=== PATIENT | female | born 1945 | race Caucasian/White ===

== ENCOUNTER 2017-02-12 11:43 | Inpatient (IN) | payer MEDICARE, MEDICAID ==
[~2017-02-12] VITALS: Ht 152.4 cm; Wt 83.5 kg
[2017-02-12] VITALS (11 sets, daily range): BP systolic 139–197; BP diastolic 73–131; PULSE 98–121; RESP 18–20; TEMP 98.7–99.7; O2SAT 88–99
[~2017-02-12 11:43] MED LIST: AMLO5TAB22 PO; ATOR40TA PO; CIPR500T4 PO; LISI-357 PO; SYNT25TA PO; ZOFR4TAB3 SL
[2017-02-12] MEDS ORDERED: SODIUM CHLOR 0.9% 1000 ML INJ 1,000 ML IV ONE ×2 (11:56)
[2017-02-12] MEDS ORDERED: SODIUM CHLOR 0.9% 1000 ML INJ 700 ML IV ONE (11:56)
[2017-02-12] MEDS ORDERED: ACETAMINOPHEN 325 MG TAB PO ONE (12:00)
[2017-02-12 12:09] LABS: BLOOD, URINE LARGE (NEG); GLUCOSE,URINE NEG (NEG); KETONE, URINE TRACE mg/dL (NEG); NITRITE,URINE NEG (NEG)
[2017-02-12] MEDS ORDERED: AMLO5TAB2 PO (12:19)
[2017-02-12] MEDS ORDERED: LEVO88TA2 PO (12:19)
[2017-02-12] MEDS ORDERED: ATOR40TA16 PO (12:19)
[2017-02-12] MEDS ORDERED: LISI2.5T3 PO (12:19)
[2017-02-12 12:31] LABS: METHOD OF COLLECTION CLEAN CATCH; URINE COLOR STRAW (YELLW/STRAW)
[2017-02-12 12:32] LABS: COMMENT (UR) CULTURE INDICATED; COMMENT2 (UR) MUCOUS PRESENT; CULTURE IF INDICATED CULTURE INDICATED; WBC, URINE 100-200 /hpf (0-5)
[2017-02-12 12:39] LABS: BASOPHIL % 0.2 % (0.0-2.0); HEMATOCRIT 36.5 % (35.0-46.0); LYMPHOCYTE # 0.5 TH/MM3 (1.0-4.8); MEAN CELL VOLUME 80.6 FL (80.0-100.0); MEAN CORPUSCULAR HEMOGLOBIN 26.5 PG (27.0-34.0); MEAN CORPUSCULAR HGB CONC 32.9 % (32.0-36.0); MONO % 3.8 % (0.0-8.0); PLATELET COUNT 199 TH/MM3 (150-450); RED BLOOD COUNT 4.53 MIL/MM3 (4.00-5.30); RED CELL DISTRIBUTION WIDTH 14.1 % (11.6-17.2); WHITE BLOOD COUNT 18.2 TH/MM3 (4.0-11.0)
[2017-02-12 12:41] LABS: HEMO FLAGS DIFF FINAL
[2017-02-12] MEDS ORDERED: PIPERACIL-TAZO 3.375 GM PREMIX 50 ML IV ONE (12:45)
[2017-02-12 12:58] LABS: CHLORIDE 104 MEQ/L (98-107); POTASSIUM 3.6 MEQ/L (3.5-5.1); SODIUM (NA) 142 MEQ/L (136-145)
[2017-02-12 13:02] LABS: ANION GAP 8 MEQ/L (5-15); BICARBONATE 30.4 MEQ/L (21.0-32.0); BLOOD UREA NITROGEN 21 MG/DL (7-18)
--- NOTE | 2017-02-12 13:02 | PD ---
HPI Chief Complaint: Complaint Time Seen by Provider: 11:55 Travel History International Travel<30 days: No Contact w/Intl Traveler<30days: No Traveled to known affect area: No History of Present Illness HPI Our patient is a 71 y.o. female presenting with R>L sided left flank pain, dysuria, fever, headache, nausea and vomiting that began last night. The pain is sharp, non-radiating, constant and non-worsening. Denies chest pain, dyspnea, blood in the urine or changes in bowel habits. She says her symptoms feel like a UTI she had over 10 years ago. She does not note any inciting, aggravating or relieving factors. No hx of trauma. She has a history of HTN and DM and is compliant with her medications. She has no allergies. She denies smoking, alcohol consumption and illicit drug use. Surgical history is remarkable for a variety of abdominal/ surgeries including appendectomy, cholecystitis, and hysterectomy. PFSH Past Medical History Narrative Medical HTN, DM Arthritis: Yes Asthma: No Autoimmune Disease: No Blood Disorders: No Anxiety: Yes Depression: Yes Heart Rhythm Problems: No Cancer: No Cardiovascular Problems: Yes High Cholesterol: Yes Chemotherapy: No Chest Pain: Yes Congestive Heart Failure: No COPD: No Cerebrovascular Accident: No Diabetes: Yes Patient Takes Glucophage: No Diminished Hearing: No Endocrine: No Gastrointestinal Disorders: Yes GERD: No Glaucoma: No Genitourinary: No Headaches: Yes Hepatitis: No Hiatal Hernia: No Hypertension: Yes Immune Disorder: No Kidney Stones: No Musculoskeletal: Yes Neurologic: Yes Psychiatric: Yes Respiratory: Yes Immunizations Current: No Myocardial Infarction: No Radiation Therapy: No Renal Failure: No Seizures: No Sleep Apnea: No Ulcer: No Tetanus Vaccination: < 5 Years Influenza Vaccination: Yes ?: Not Tubal Ligation: Yes Past Surgical History Abdominal Surgery: Yes (UMBILICAL HERNIA REPAIR) AICD: No Appendectomy: Yes Cardiac Surgery: No Section: Yes (1967) Cholecystectomy: Yes Ear Surgery: No Endocrine Surgery: No Eye Surgery: No Genitourinary Surgery: No Gynecologic Surgery: Yes (HYSTERECTOMY) Hysterectomy: Yes Joint Replacement: No Oral Surgery: No Pacemaker: No Thoracic Surgery: Yes Other Surgery: Yes Social History Alcohol Use: No Tobacco Use: No Substance Use: No Allergies-Medications (Allergen,Severity, Reaction): Coded Allergies: No Known Allergies (Verified , 06/10/15) Reported Meds & Prescriptions Reported Meds & Active Scripts Active Reported Lisinopril 2.5 Mg Tab 2.5 Mg PO DAILY Atorvastatin (Atorvastatin Calcium) 40 Mg Tab 40 Mg PO HS Amlodipine (Amlodipine Besylate) 5 Mg Tab 5 Mg PO DAILY Levothyroxine (Levothyroxine Sodium) 88 Mcg Tab 88 Mcg PO DAILY Review of Systems Except as stated in HPI: all other systems reviewed are Neg General / Constitutional: Positive: Fever Gastrointestinal: Positive: Nausea, Vomiting Genitourinary: Positive: Dysuria, Flank Pain Physical Exam Narrative GENERAL: Alert and oriented, appears to be in mild distress. Speaks in full sentences. SKIN: Warm and dry. HEAD: Normocephalic. EYES: No scleral icterus. No injection or drainage. NECK: Supple, trachea midline. No JVD or lymphadenopathy. CARDIOVASCULAR: Regular rate and rhythm without murmurs, gallops, or rubs. RESPIRATORY: Breath sounds equal bilaterally. No accessory muscle use. GASTROINTESTINAL: Abdomen soft, mildly tender, nondistended. No suprapubic tenderness. MUSCULOSKELETAL: No cyanosis, or edema. BACK: Nontender without obvious deformity. + Right sided CVA tenderness Data Data Last Documented VS Vital Signs Date Time Temp Pulse Resp B/P Pulse Ox O2 Delivery O2 Flow Rate FiO2 02/12/17 12:42 99 Room Air 02/12/17 11:48 99.7 121 20 152/86 Orders Urinalysis - C+S If Indicated (02/12/17 11:52) Complete Blood Count With Diff (02/12/17 11:56) Comprehensive Metabolic Panel (02/12/17 11:56) Lactic Acid Sepsis Protocol (02/12/17 11:56) Blood Culture (02/12/17 11:56) Chest, Single Ap (02/12/17 11:56) Blood Glucose (02/12/17 11:56) Ecg Monitoring (02/12/17 11:56) Iv Access Insert/Monitor (02/12/17 11:56) Oximetry (02/12/17 11:56) Oxygen Administration (02/12/17 11:56) Acetaminophen (Tylenol) (02/12/17 12:00) Sodium Chlor 0.9% 1000 Ml Inj (Ns 1000 M (02/12/17 11:56) Sodium Chlor 0.9% 1000 Ml Inj (Ns 1000 M (02/12/17 11:56) Sodium Chlor 0.9% 1000 Ml Inj (Ns 1000 M (02/12/17 11:56) Ct Abd/Pel W/O Iv Contrast (02/12/17 12:21) Urine Culture (02/12/17 12:05) Piperacil-Tazo 3.375 Gm Premix (Zosyn 3. (02/12/17 12:45) Admit Order (Ed Use Only) (02/12/17 14:03) Labs Laboratory Tests Test 02/12/17 02/12/17 02/12/17 12:05 12:30 12:45 Urine Collection Type CLEAN CATCH Urine Color STRAW Urine Turbidity MOD Urine pH 6.0 Urine Specific [place] 1.012 Urine Protein 300 OR GREATER mg/dL Urine Glucose (UA) NEG mg/dL Urine Ketones TRACE mg/dL Urine Occult Blood LARGE Urine Nitrite NEG Urine Bilirubin NEG Urine Leukocyte Esterase SMALL Urine RBC 25-49 /hpf Urine WBC 100-200 /hpf Urine WBC Clumps MOD Urine Squamous Epithelial 6-8 /hpf Cells Urine Amorphous Sediment MOD Microscopic Urinalysis Comment CULTURE INDICATED Urine Collection Time 1205 White Blood Count 18.2 TH/MM3 Red Blood Count 4.53 MIL/MM3 Hemoglobin 12.0 GM/DL Hematocrit 36.5 % Mean Corpuscular Volume 80.6 FL Mean Corpuscular Hemoglobin 26.5 PG Mean Corpuscular Hemoglobin 32.9 % Concent Red Cell Distribution Width 14.1 % Platelet Count 199 TH/MM3 Mean Platelet Volume 9.0 FL Neutrophils (%) (Auto) 93.0 % Lymphocytes (%) (Auto) 3.0 % Monocytes (%) (Auto) 3.8 % Eosinophils (%) (Auto) 0.0 % Basophils (%) (Auto) 0.2 % Neutrophils # (Auto) 17.0 TH/MM3 Lymphocytes # (Auto) 0.5 TH/MM3 Monocytes # (Auto) 0.7 TH/MM3 Eosinophils # (Auto) 0.0 TH/MM3 Basophils # (Auto) 0.0 TH/MM3 CBC Comment DIFF FINAL Differential Comment Sodium Level 142 MEQ/L Potassium Level 3.6 MEQ/L Chloride Level 104 MEQ/L Carbon Dioxide Level 30.4 MEQ/L Anion Gap 8 MEQ/L Blood Urea Nitrogen 21 MG/DL Creatinine 1.40 MG/DL Estimat Glomerular Filtration 37 ML/MIN Rate Random Glucose 166 MG/DL Calcium Level 9.3 MG/DL Total Bilirubin 0.8 MG/DL Aspartate Amino Transf 20 U/L (AST/SGOT) Alanine Aminotransferase 18 U/L (ALT/SGPT) Alkaline Phosphatase 103 U/L Total Protein 7.2 GM/DL Albumin 3.2 GM/DL Lactic Acid Level 1.1 mmol/L MDM Medical Decision Making Medical Screen Exam Complete: Yes Emergency Medical Condition: Yes Medical Record Reviewed: Yes Differential Diagnosis UTI, nephrolithiasis, pyelonephritis Narrative Course Our patient is a 71 y.o. F presenting with R>L sided flank pain, subjective fever, headache, nausea, vomiting and abdominal pain of 1 day duration. She says these symptoms are similar to a UTI she had over 10 years ago. She agrees to undergo septic workup to further investigate the etiology of her symptoms. CBC & BMP Diagram 02/12/17 12:30 LFTs normal LA 1.1 UA UTI present Last 24 hours Impressions Abdomen/Pelvis CT 02/12/17 1221 Signed Impressions: Service Date/Time: Sunday, February 12, 2017 12:41 - CONCLUSION: 1. Right-sided pelviectasis and subtle right ureteral prominence with associated perinephric stranding. Although nonspecific, these findings may reflect recent passage of renal calculus. Otherwise, no radiopaque renal calculi or evidence for significant obstructive uropathy. Moustapha Meneses MD Chest X-Ray 02/12/17 1156 Signed Impressions: Service Date/Time: Sunday, February 12, 2017 12:53 - CONCLUSION: No acute cardiopulmonary abnormality is identified. Luther Elias MD Pt has UTI and meets sepsis criteria. Renal dose Zosyn started. Pain controlled with Tylenol. d/w Dr Mathur. Sepsis Criteria SIRS Criteria (2 or more): Heart rate over 90, WBC > 54916, < 4000 or > 10% bands Sepsis Criteria (SIRS+source): Infect source susp/known Diagnosis Primary Impression: Sepsis Qualified Code: A41.9 - Sepsis, due to unspecified organism Additional Impression: UTI (urinary tract infection) Qualified Code: N30.01 - Acute cystitis with hematuria Admitting Information Admitting Physician Requests: Admit Ronan Little MD Feb 12, 2017 13:02
[2017-02-12 13:05] LABS: ALT (GPT) 18 U/L (10-53); AST (GOT) 20 U/L (15-37); GLOMERULAR FILTRATION RATE 37 ML/MIN (>89)
[2017-02-12 13:06] LABS: TOTAL BILIRUBIN ADULT 0.8 MG/DL (0.2-1.0)
[2017-02-12 13:08] LABS: ALKALINE PHOSPHATASE 103 U/L (45-117)
--- NOTE | 2017-02-12 13:22 | RADRPT ---
EXAM DATE/TIME: 02/12/2017 12:53 [facility] COMPARISON: CT ABDOMEN & PELVIS W/O CONTRAST, February 12, 2017, 12:41. INDICATIONS : Fever and short of breath MEDICAL HISTORY : Hypertension. Hypercholesterolemia. SURGICAL HISTORY : None. ENCOUNTER: Initial ACUITY: 1 day PAIN SCORE: 0/10 LOCATION: Bilateral chest FINDINGS: Portable AP view of the chest demonstrates a normal-sized cardiac silhouette with mildly tortuous immanuel cending thoracic aorta. No effusion, consolidation, or pneumothorax is identified. Bones and soft tis sues demonstrate no acute finding. Multiple EKG leads overlie the patient. CONCLUSION: No acute cardiopulmonary abnormality is identified. Luther Elias MD on February 12, 2017 at 13:19 Board Certified Radiologist. This report was verified electronically.
--- NOTE | 2017-02-12 13:37 | RADRPT ---
EXAM DATE/TIME: 02/12/2017 12:41 [facility] COMPARISON: No previous studies available for comparison. INDICATIONS : Urinary urgency, frequency and burning since yesterday. Right flank pain. ORAL CONTRAST: No oral contrast ingested. RADIATION DOSE: 22.64 CTDIvol (mGy) MEDICAL HISTORY : Hypertension. Diabetes. SURGICAL HISTORY : Umbilical hernia repair. Appendectomy.Cholecystectomy.Hysterectomy. Tubal ligation. ENCOUNTER: Initial ACUITY: 2 days PAIN SCALE: 4/10 LOCATION: Right flank TECHNIQUE: Volumetric scanning of the abdomen and pelvis was performed. Using automated exposure control and ad justment of the mA and/or kV according to patient size, radiation dose was kept as low as reasonably achievable to obtain optimal diagnostic quality images. DICOM format image data is available electro nically for review and comparison. FINDINGS: LOWER LUNGS: Minimal bibasilar atelectasis. LIVER: Homogeneous density without lesion. There is no dilation of the biliary tree. Gallbladder is surgic ally absent. SPLEEN: Normal size without lesion. PANCREAS: Within normal limits. KIDNEYS: Mild perinephric stranding is noted on the right. The right renal collecting system is minimally prom inent and there is very mild right-sided ureteral prominence. No radiopaque renal calculi or ureteral calculi are demonstrated. 1.4 x 1.9 cm cyst in the posterior mid left kidney. ADRENAL GLANDS: Within normal limits. VASCULAR: There is no aortic aneurysm. BOWEL/MESENTERY: Small hiatal hernia. Otherwise, the stomach, small bowel, and colon demonstrate no acute abnormality. There is no free intraperitoneal air or fluid. ABDOMINAL WALL: Postsurgical features of anterior bowel wall hernia repair. RETROPERITONEUM: There is no lymphadenopathy. BLADDER: No wall thickening or mass. REPRODUCTIVE: Within normal limits. INGUINAL: There is no lymphadenopathy or hernia. MUSCULOSKELETAL: Within normal limits for patient age. CONCLUSION: 1. Right-sided pelviectasis and subtle right ureteral prominence with associated perinephric strandin g. Although nonspecific, these findings may reflect recent passage of renal calculus. Otherwise, no r adiopaque renal calculi or evidence for significant obstructive uropathy. Moustapha Meneses MD on February 12, 2017 at 13:22 Board Certified Radiologist. This report was verified electronically.
[2017-02-12] MEDS ORDERED: DEXTROSE 50% IN WATER 50 ML VIAL(D50) IV PRN (14:15)
[2017-02-12] MEDS ORDERED: SODIUM CHLORIDE 0.9% FLUSH 10 ML FLUSH IV FLUSH PRN (14:15)
[2017-02-12] MEDS ORDERED: NALOXONE HCL 0.4 MG/ML AMP IV PRN (14:15)
[2017-02-12] MEDS ORDERED: GLUCAGON 1 MG/ML VIAL OTHER PRN (14:15)
[2017-02-12] MEDS ORDERED: BISACODYL 10 MG SUPP RECTAL PRN (15:00)
[2017-02-12] MEDS ORDERED: MAGNESIUM HYDROXIDE SUSP 30 ML CUP PO PRN (15:00)
[2017-02-12] MEDS ORDERED: SENNOSIDES 8.6 MG TAB PO PRN (15:00)
[2017-02-12] MEDS: ONDANSETRON HCL 4 MG/2 ML VIAL IVP PRN ×2 (15:00→21:25)
[2017-02-12] MEDS ORDERED: ACETAMINOPHEN 325 MG TAB PO PRN (15:00)
[2017-02-12] MEDS ORDERED: LACTULOSE SYRUP 20 GM/30 ML CUP PO PRN (15:00)
[2017-02-12] MEDS: INSULIN ASPART SUPPLEMENTAL SCALE SQ SCH ×2 (16:00→21:00)
[2017-02-12] MEDS: ACETAMINOPHEN/HYDROcodone 325 MG/5 MG TAB PO PRN (16:01)
[2017-02-12] MEDS ORDERED: cloNIDine HCL 0.1 MG TAB PO ONE (17:30)
[2017-02-12] MEDS: SODIUM CHLOR 0.9% 1000 ML INJ 1,000 ML IV SCH (17:31)
[2017-02-12] MEDS: DOCUSATE SODIUM 50 MG/SENNA 8.6 MG TAB PO SCH (21:25)
[2017-02-12] MEDS: SODIUM CHLORIDE 0.9% FLUSH 10 ML FLUSH IV FLUSH SCH (21:26)
[2017-02-12] MEDS: PIPERACIL-TAZO 3.375 GM PREMIX 50 ML IV SCH (22:00)
[2017-02-13] VITALS (8 sets, daily range): BP systolic 136–177; BP diastolic 80–95; PULSE 84–94; RESP 18–20; TEMP 95.9–99.7; O2SAT 96–99
[2017-02-13] MEDS: SODIUM CHLOR 0.9% 1000 ML INJ 1,000 ML IV SCH ×3 (04:51→21:17)
[2017-02-13] MEDS: PIPERACIL-TAZO 3.375 GM PREMIX 50 ML IV SCH ×3 (04:51→21:19)
[2017-02-13] MEDS: INSULIN ASPART SUPPLEMENTAL SCALE SQ SCH ×4 (06:31→21:10)
[2017-02-13] MEDS: DOCUSATE SODIUM 50 MG/SENNA 8.6 MG TAB PO SCH ×2 (08:07→21:00)
[2017-02-13] MEDS: SODIUM CHLORIDE 0.9% FLUSH 10 ML FLUSH IV FLUSH SCH ×2 (08:08→21:16)
[2017-02-13 08:33] LABS: AUTOMATED NEUTROPHIL # 12.8 TH/MM3 (1.8-7.7); BASOPHIL % 0.1 % (0.0-2.0); EOSINOPHIL % 0.3 % (0.0-4.0); HEMATOCRIT 31.3 % (35.0-46.0); LYMPH % 8.8 % (9.0-44.0); LYMPHOCYTE # 1.4 TH/MM3 (1.0-4.8); MEAN CELL VOLUME 81.2 FL (80.0-100.0); MEAN CORPUSCULAR HEMOGLOBIN 25.9 PG (27.0-34.0); MEAN CORPUSCULAR HGB CONC 31.9 % (32.0-36.0); MONO % 8.7 % (0.0-8.0); NEUT % 82.1 % (16.0-70.0); PLATELET COUNT 156 TH/MM3 (150-450); RED BLOOD COUNT 3.85 MIL/MM3 (4.00-5.30); RED CELL DISTRIBUTION WIDTH 14.1 % (11.6-17.2); WHITE BLOOD COUNT 15.5 TH/MM3 (4.0-11.0)
[2017-02-13 08:40] LABS: POTASSIUM 3.6 MEQ/L (3.5-5.1)
[2017-02-13 08:45] LABS: HEMO FLAGS AUTO DIFF
[2017-02-13 08:50] LABS: BICARBONATE 28.1 MEQ/L (21.0-32.0)
[2017-02-13 09:23] LABS: PLATELET ESTIMATE SMEAR NORMAL (NORMAL); PLATELET MORPHOLOGY NORMAL (NORMAL); SCAN/DIFF AUTO DIFF CONFIRMED
[2017-02-13] MEDS: PANTOPRAZOLE SOD 40 MG DELAYED RELEASE TAB PO SCH (10:40)
--- NOTE | 2017-02-13 12:37 | MH ---
cc: MARTIN MEADE MD DATE OF ADMISSION 02/12/2017 CHIEF COMPLAINT Right-sided flank area pain HISTORY OF PRESENT ILLNESS This is a 71-year-old very pleasant female with past medical and surgical history significant for diabetes mellitus, hypertension, arthritis, anxiety, depression, hyperlipidemia, history of headache, history of umbilical hernia repair, appendectomy, 1968, cholecystectomy, hysterectomy and came to the ER at [facility] complaining of right-sided flank pain, dysuria, fever, headache, nausea and vomiting which began yesterday night and the patient is having sharp and nonradiating, constant pain in the right flank area. She had some vomiting yesterday, but denies any vomiting today. She has some mild nausea. She denies any fever or chills. Denies any cough. She denies any blood in the urine. She denies smoking or alcohol consumption. No illicit drug abuse. After the treatment, she feels better and other than that nothing significant. PAST MEDICAL AND SURGICAL HISTORY As dictated above. SOCIAL HISTORY She denies smoking, drinking or taking any drugs. Lives at home with . She is not working. FAMILY HISTORY Nothing significant. ALLERGIES NO KNOWN DRUG ALLERGIES. MEDICATIONS 1. Lisinopril 2.5 mg p.o. daily 2. Atorvastatin 40 mg p.o. daily 3. Amlodipine 5 mg p.o. daily 4. Levothyroxine 88 mcg p.o. daily REVIEW OF SYSTEMS Positive for right-sided flank pain, all other review of systems are negative except nausea and difficulty with urination. PHYSICAL EXAMINATION This is a 71-year female sitting on the bed not in acute distress. VITAL SIGNS: Temperature 98.3, heart rate 89, respiration 19, blood pressure 147/85, O2 saturation 99% at two liters nasal cannula. HEENT: Normocephalic, atraumatic. EOMI. PERRL. Oral mucosa moist. NECK: Supple. No visible thyromegaly or neck mass. Trachea central. CARDIOVASCULAR: Regular rate and rhythm. Respirations clear to auscultation bilaterally. ABDOMEN: Soft. Bowel sounds audible. Mild tenderness in the right side of the abdomen in the middle. No rebound tenderness. EXTREMITIES: No cyanosis or clubbing. Full range of motion of all extremities. BACK: Examination shows a right CVA tenderness. NEUROLOGIC: Awake, alert, and oriented x4. No focal deficits. SKIN: Warm and dry. PSYCH: The patient is cooperative. Mood and affect is normal. LABORATORY DATA Include CBC showed WBC count of 18.2, now it is 15.5, hemoglobin was 12.0 now it is 10.0, MCH is 26.5 now it is 25.9, neutrophils 93%, now it is 82.1 high. BMP totally unremarkable except for sodium 148 high, chloride 111 high, creatinine was 1.40 which is high, GFR 37 low, calcium is 8.0 low, albumin 3.2. Urine examination done shows 100-200 WBCs with moderate clumps of WBCs, 25-49 RBC, protein 300 or more greater. Urine is moderately turbid. Trace of ketones, occult blood large. Nitrite negative. Leukocyte esterase small. Culture indicated. Blood cultures x2 done negative so far. Urine cultures are negative so far. Chest x-ray done shows no acute cardiopulmonary process. CT of the abdomen and pelvis was done shows right-sided pelviectasis and a septal right ureteral prominence with associated perinephric stenting, although nonspecific, these findings may reflect recent passage of renal calculus, otherwise no radiopaque renal calculi or evidence of significant obstructive uropathy. ASSESSMENT/PLAN This is a 71-year female who came to the ER diagnosed with right-sided flank pain with a urinary tract infection most likely acute pyelonephritis. The patient is on Zosyn IV and also [place] 5/325 p.o. q4h p.r.n. pain. His history of hypertension. Continue the home medication. We will monitor blood pressure. History of diabetes mellitus most likely diet controlled. We will monitor sugar. History of hypothyroidism. Continue with levothyroxine 88 mcg p.o. daily. History of hyperlipidemia. Continue Lipitor 40 mg p.o. daily. DVT prophylaxis. SCD. GI prophylaxis. Protonix 40 mg p.o. daily. We are going to manage the patient on a daily basis, make recommendations on a daily basis. Martin Meade MD EA/MELONIE /10:05 AM /12:30 PM
[2017-02-14] VITALS (7 sets, daily range): BP systolic 152–199; BP diastolic 79–102; PULSE 68–92; RESP 16–20; TEMP 97–99; O2SAT 97–100
[2017-02-14] MEDS: cloNIDine HCL 0.1 MG TAB PO PRN (01:13)
[2017-02-14 05:25] LABS: CHLORIDE 113 MEQ/L (98-107); POTASSIUM 3.5 MEQ/L (3.5-5.1); SODIUM (NA) 148 MEQ/L (136-145)
[2017-02-14] MEDS: PIPERACIL-TAZO 3.375 GM PREMIX 50 ML IV SCH ×3 (05:29→21:51)
[2017-02-14] MEDS: INSULIN ASPART SUPPLEMENTAL SCALE SQ SCH ×4 (05:30→21:00)
[2017-02-14 05:49] LABS: BASOPHIL % 0.1 % (0.0-2.0); EOSINOPHIL # 0.1 TH/MM3 (0-0.4); EOSINOPHIL % 1.1 % (0.0-4.0); HEMATOCRIT 30.7 % (35.0-46.0); HEMO FLAGS DIFF FINAL; LYMPH % 11.9 % (9.0-44.0); LYMPHOCYTE # 1.4 TH/MM3 (1.0-4.8); MEAN CELL VOLUME 81.6 FL (80.0-100.0); MEAN CORPUSCULAR HEMOGLOBIN 25.7 PG (27.0-34.0); MEAN CORPUSCULAR HGB CONC 31.5 % (32.0-36.0); MONO % 8.9 % (0.0-8.0); PLATELET COUNT 163 TH/MM3 (150-450); RED BLOOD COUNT 3.76 MIL/MM3 (4.00-5.30); RED CELL DISTRIBUTION WIDTH 14.3 % (11.6-17.2); WHITE BLOOD COUNT 11.5 TH/MM3 (4.0-11.0)
[2017-02-14 06:26] LABS: ALKALINE PHOSPHATASE 70 U/L (45-117); ALT (GPT) 15 U/L (10-53); ANION GAP 8 MEQ/L (5-15); AST (GOT) 17 U/L (15-37); BICARBONATE 27.2 MEQ/L (21.0-32.0); BLOOD UREA NITROGEN 18 MG/DL (7-18); GLOMERULAR FILTRATION RATE 34 ML/MIN (>89); TOTAL BILIRUBIN ADULT 0.4 MG/DL (0.2-1.0)
[2017-02-14] MEDS: ACETAMINOPHEN/HYDROcodone 325 MG/5 MG TAB PO PRN ×2 (07:33→21:53)
--- NOTE | 2017-02-14 08:07 | HHI.PR ---
Subjective History of Present Illness Patient right flank pain better. no acute issue D/W KAREN Rayo. Review of Systems Constitutional Constitutional: Fatigue, Weakness Genitourinary Remarks right flank pain. Vitals/Results Intake & Output 02/13/17 02/13/17 02/14/17 15:00 23:00 07:00 Intake Total 750 ml 600 ml Balance 750 ml 600 ml Intake Oral 750 ml 0 ml IV Total 600 ml # Voids 4 2 # Bowel Movements 1 Vital Signs Vital Signs Date Time Temp Pulse Resp B/P Pulse Ox O2 Delivery O2 Flow Rate FiO2 02/14/17 04:00 97.9 92 20 163/91 97 02/14/17 00:00 99.0 90 20 199/102 99 02/13/17 21:00 91 02/13/17 20:30 Nasal Cannula 2.00 02/13/17 20:00 98.2 94 20 177/93 97 02/13/17 16:36 99.7 87 19 162/80 99 02/13/17 12:28 98.3 87 19 171/95 99 02/13/17 09:30 Nasal Cannula 2.00 02/13/17 08:49 98.3 89 19 147/85 99 CBC/BMP: 02/14/17 0500 02/14/17 0500 Lab Results Laboratory Tests Test 02/14/17 05:00 White Blood Count 11.5 TH/MM3 Red Blood Count 3.76 MIL/MM3 Hemoglobin 9.7 GM/DL Hematocrit 30.7 % Mean Corpuscular Volume 81.6 FL Mean Corpuscular Hemoglobin 25.7 PG Mean Corpuscular Hemoglobin 31.5 % Concent Red Cell Distribution Width 14.3 % Platelet Count 163 TH/MM3 Mean Platelet Volume 10.6 FL Neutrophils (%) (Auto) 78.0 % Lymphocytes (%) (Auto) 11.9 % Monocytes (%) (Auto) 8.9 % Eosinophils (%) (Auto) 1.1 % Basophils (%) (Auto) 0.1 % Neutrophils # (Auto) 9.0 TH/MM3 Lymphocytes # (Auto) 1.4 TH/MM3 Monocytes # (Auto) 1.0 TH/MM3 Eosinophils # (Auto) 0.1 TH/MM3 Basophils # (Auto) 0.0 TH/MM3 CBC Comment DIFF FINAL Differential Comment Sodium Level 148 MEQ/L Potassium Level 3.5 MEQ/L Chloride Level 113 MEQ/L Carbon Dioxide Level 27.2 MEQ/L Anion Gap 8 MEQ/L Blood Urea Nitrogen 18 MG/DL Creatinine 1.50 MG/DL Estimat Glomerular Filtration 34 ML/MIN Rate Random Glucose 117 MG/DL Calcium Level 8.0 MG/DL Total Bilirubin 0.4 MG/DL Aspartate Amino Transf 17 U/L (AST/SGOT) Alanine Aminotransferase 15 U/L (ALT/SGPT) Alkaline Phosphatase 70 U/L Total Protein 5.8 GM/DL Albumin 2.2 GM/DL Physical Exam General General Appearance: Well Developed, Well Nourished, No Acute Distress, Comfortable Eyes Eye Exam: Pupils Equal, Pupils Reactive, Sclera White, Extraocular Movement Intact Throat Throat Exam: Oral Mucosa [place] & Moist, Oral Pharynx Normal Neck Neck Exam: Neck Supple, Trachea Midline Pulmonary Resp Exam: Clear Bilaterally, Breath Sounds Equal Cardiology CV Exam: Regular, Normal Sinus Rhythm Gastrointestinal/Abdomen GI Exam: Soft, Non-Tender, Bowel Sounds Present Genitourinary Remarks right flank tenderness. Musculoskeletal MS Exam: Normal Tone Integumentary Skin Exam: Clear, Warm, Dry Extremeties Extremities Exam: No Edema Neurologic Neuro Exam: Alert, Awake, Oriented, Speech Clear, Moving All Extremities, No Focal Deficits Psychiatric Psych Exam: Appropriate Responses VTE Prophylaxis VTE Prophylaxis Meds: Heparin PUD Prophylasis PUD Prophylaxis: Protonix Assessment/Plan Assessment/Plan ASSESSMENT/PLAN This is a 71-year female who came to the ER diagnosed with right-sided flank pain with a urinary tract infection most likely acute pyelonephritis. The patient is on Zosyn IV and also [place] 5/325 p.o. q4h p.r.n. pain. His history of hypertension. Continue the home medication. We will monitor blood pressure. History of diabetes mellitus most likely diet controlled. We will monitor sugar. History of hypothyroidism. Continue with levothyroxine 88 mcg p.o. daily. History of hyperlipidemia. Continue Lipitor 40 mg p.o. daily. DVT prophylaxis. SCD. GI prophylaxis. Protonix 40 mg p.o. daily. We are going to manage the patient on a daily basis, make recommendations on a daily basis. Discussed Condition with: Patient Martin José MD Feb 14, 2017 08:07
[2017-02-14] MEDS: SODIUM CHLORIDE 0.9% FLUSH 10 ML FLUSH IV FLUSH SCH ×2 (09:00→21:00)
[2017-02-14] MEDS: DOCUSATE SODIUM 50 MG/SENNA 8.6 MG TAB PO SCH ×2 (09:00→21:00)
[2017-02-14] MEDS: SODIUM CHLOR 0.9% 1000 ML INJ 1,000 ML IV SCH (09:41)
[2017-02-14] MEDS: PANTOPRAZOLE SOD 40 MG DELAYED RELEASE TAB PO SCH (10:34)
[2017-02-15] VITALS: BP 160/100; PULSE 82; RESP 18; TEMP 97.8; O2SAT 97
[2017-02-15 04:00] VITALS: BP 160/110; PULSE 72; RESP 20; TEMP 97.9; O2SAT 99
[2017-02-15] MEDS: SODIUM CHLOR 0.9% 1000 ML INJ 1,000 ML IV SCH ×2 (05:54→14:15)
[2017-02-15] MEDS: INSULIN ASPART SUPPLEMENTAL SCALE SQ SCH ×5 (05:54→21:00)
[2017-02-15] MEDS: PIPERACIL-TAZO 3.375 GM PREMIX 50 ML IV SCH ×2 (05:54→14:14)
[2017-02-15 06:18] LABS: AUTOMATED NEUTROPHIL # 6.2 TH/MM3 (1.8-7.7); BASOPHIL % 0.2 % (0.0-2.0); EOSINOPHIL # 0.2 TH/MM3 (0-0.4); EOSINOPHIL % 2.4 % (0.0-4.0); HEMATOCRIT 32.2 % (35.0-46.0); HEMO FLAGS DIFF FINAL; LYMPH % 18.6 % (9.0-44.0); LYMPHOCYTE # 1.7 TH/MM3 (1.0-4.8); MEAN CELL VOLUME 81.8 FL (80.0-100.0); MEAN CORPUSCULAR HEMOGLOBIN 26.4 PG (27.0-34.0); MEAN CORPUSCULAR HGB CONC 32.3 % (32.0-36.0); MONO % 10.7 % (0.0-8.0); NEUT % 68.1 % (16.0-70.0); PLATELET COUNT 163 TH/MM3 (150-450); RED BLOOD COUNT 3.93 MIL/MM3 (4.00-5.30); RED CELL DISTRIBUTION WIDTH 14.3 % (11.6-17.2); WHITE BLOOD COUNT 9.1 TH/MM3 (4.0-11.0)
[2017-02-15 06:27] LABS: CHLORIDE 111 MEQ/L (98-107); POTASSIUM 3.7 MEQ/L (3.5-5.1); SODIUM (NA) 148 MEQ/L (136-145)
[2017-02-15 06:37] LABS: ANION GAP 8 MEQ/L (5-15); BICARBONATE 28.9 MEQ/L (21.0-32.0); BLOOD UREA NITROGEN 19 MG/DL (7-18)
[2017-02-15 06:40] LABS: ALT (GPT) 15 U/L (10-53); AST (GOT) 17 U/L (15-37); GLOMERULAR FILTRATION RATE 40 ML/MIN (>89)
[2017-02-15 06:41] LABS: TOTAL BILIRUBIN ADULT 0.4 MG/DL (0.2-1.0)
[2017-02-15 06:43] LABS: ALKALINE PHOSPHATASE 83 U/L (45-117)
[2017-02-15] MEDS: cloNIDine HCL 0.1 MG TAB PO PRN (07:52)
[2017-02-15] MEDS: SODIUM CHLORIDE 0.9% FLUSH 10 ML FLUSH IV FLUSH SCH ×2 (07:53→21:50)
[2017-02-15] MEDS: PANTOPRAZOLE SOD 40 MG DELAYED RELEASE TAB PO SCH (07:53)
[2017-02-15] MEDS: DOCUSATE SODIUM 50 MG/SENNA 8.6 MG TAB PO SCH ×2 (07:53→21:00)
[2017-02-15 08:00] VITALS: BP 190/102; PULSE 80; RESP 20; TEMP 97.5; O2SAT 98
[2017-02-15 12:00] VITALS: BP 160/100; PULSE 75; RESP 20; TEMP 98.5; O2SAT 94
--- NOTE | 2017-02-15 13:04 | HHI.PR ---
Subjective History of Present Illness Patient right flank pain better. no acute issue D/W KAREN Rayo. Review of Systems Constitutional Constitutional: Fatigue, Weakness Genitourinary Remarks right flank pain. Vitals/Results Intake & Output 02/14/17 02/14/17 02/15/17 15:00 23:00 07:00 Intake Total 900 ml 1363 ml 942 ml Balance 900 ml 1363 ml 942 ml Intake Oral 900 ml 360 ml 360 ml IV Total 1003 ml 582 ml # Voids 3 1 2 # Bowel Movements 1 Vital Signs Vital Signs Date Time Temp Pulse Resp B/P Pulse Ox O2 Delivery O2 Flow Rate FiO2 02/15/17 12:00 98.5 75 20 160/100 94 02/15/17 10:16 96 Nasal Cannula 2.00 02/15/17 08:00 97.5 80 20 190/102 98 02/15/17 04:00 97.9 72 20 160/110 99 02/15/17 00:00 97.8 82 18 160/100 97 02/14/17 20:05 86 02/14/17 20:00 98.7 88 16 152/79 99 02/14/17 20:00 99 Nasal Cannula 2.00 02/14/17 16:00 97.5 80 20 179/92 98 CBC/BMP: 02/15/17 0558 02/15/17 0558 Lab Results Laboratory Tests Test 02/15/17 05:58 White Blood Count 9.1 TH/MM3 Red Blood Count 3.93 MIL/MM3 Hemoglobin 10.4 GM/DL Hematocrit 32.2 % Mean Corpuscular Volume 81.8 FL Mean Corpuscular Hemoglobin 26.4 PG Mean Corpuscular Hemoglobin 32.3 % Concent Red Cell Distribution Width 14.3 % Platelet Count 163 TH/MM3 Mean Platelet Volume 9.7 FL Neutrophils (%) (Auto) 68.1 % Lymphocytes (%) (Auto) 18.6 % Monocytes (%) (Auto) 10.7 % Eosinophils (%) (Auto) 2.4 % Basophils (%) (Auto) 0.2 % Neutrophils # (Auto) 6.2 TH/MM3 Lymphocytes # (Auto) 1.7 TH/MM3 Monocytes # (Auto) 1.0 TH/MM3 Eosinophils # (Auto) 0.2 TH/MM3 Basophils # (Auto) 0.0 TH/MM3 CBC Comment DIFF FINAL Differential Comment Sodium Level 148 MEQ/L Potassium Level 3.7 MEQ/L Chloride Level 111 MEQ/L Carbon Dioxide Level 28.9 MEQ/L Anion Gap 8 MEQ/L Blood Urea Nitrogen 19 MG/DL Creatinine 1.30 MG/DL Estimat Glomerular Filtration 40 ML/MIN Rate Random Glucose 101 MG/DL Calcium Level 8.7 MG/DL Total Bilirubin 0.4 MG/DL Aspartate Amino Transf 17 U/L (AST/SGOT) Alanine Aminotransferase 15 U/L (ALT/SGPT) Alkaline Phosphatase 83 U/L Total Protein 6.3 GM/DL Albumin 2.4 GM/DL Physical Exam General General Appearance: Well Developed, Well Nourished, No Acute Distress, Comfortable Eyes Eye Exam: Pupils Equal, Pupils Reactive, Sclera White, Extraocular Movement Intact Throat Throat Exam: Oral Mucosa [place] & Moist, Oral Pharynx Normal Neck Neck Exam: Neck Supple, Trachea Midline Pulmonary Resp Exam: Clear Bilaterally, Breath Sounds Equal Cardiology CV Exam: Regular, Normal Sinus Rhythm Gastrointestinal/Abdomen GI Exam: Soft, Non-Tender, Bowel Sounds Present Genitourinary Remarks right flank tenderness. Musculoskeletal MS Exam: Normal Tone Integumentary Skin Exam: Clear, Warm, Dry Extremeties Extremities Exam: No Edema Neurologic Neuro Exam: Alert, Awake, Oriented, Speech Clear, Moving All Extremities, No Focal Deficits Psychiatric Psych Exam: Appropriate Responses VTE Prophylaxis VTE Prophylaxis Meds: Heparin PUD Prophylasis PUD Prophylaxis: Protonix Assessment/Plan Assessment/Plan ASSESSMENT/PLAN This is a 71-year female who came to the ER diagnosed with right-sided flank pain with a urinary tract infection most likely acute pyelonephritis. Urine culture grows E. Coli, The patient is on cefazolin IV and also [place] 5/325 p.o. q4h p.r.n. pain. His history of hypertension. Continue the home medication. We will monitor blood pressure. History of diabetes mellitus most likely diet controlled. We will monitor sugar. History of hypothyroidism. Continue with levothyroxine 88 mcg p.o. daily. History of hyperlipidemia. Continue Lipitor 40 mg p.o. daily. DVT prophylaxis. SCD. GI prophylaxis. Protonix 40 mg p.o. daily. We are going to manage the patient on a daily basis, make recommendations on a daily basis. Discussed Condition with: Patient Martin José MD Feb 15, 2017 13:04
[2017-02-15 16:00] VITALS: BP 187/97; PULSE 75; RESP 20; TEMP 98.9; O2SAT 100
--- NOTE | 2017-02-15 19:28 | PD.CONS ---
History of Present Illness Service Infectious Disease Consult Requested By Dr Martin José Reason for Consult R/o Pyelonephritis Primary Care Physician Lennox Ro M.D. Diagnoses: (1) UTI (urinary tract infection) History of Present Illness Patient admitted with c/o sharp right flank pain , fever and dysuria. Also initially some nausea, vomiting. Occasional right flank pain now but overall better. Review of Systems Constitutional: COMPLAINS OF: Fatigue, Chills Endocrine: COMPLAINS OF: Polyuria Eyes: DENIES: Diplopia, Eye inflammation, Eye pain Ears, nose, mouth, throat: DENIES: Nasal discharge, Oral lesions, Throat pain Respiratory: COMPLAINS OF: Shortness of breath, DENIES: Cough, Hemoptysis Cardiovascular: DENIES: Chest pain, Syncope Gastrointestinal: DENIES: Bloody stools, Constipation, Diarrhea, Difficulty Swallowing Genitourinary: COMPLAINS OF: Urinary frequency, Dysuria, DENIES: Hematuria Musculoskeletal: DENIES: Joint pain, Muscle aches Integumentary: DENIES: Abnormal pigmentation, Pruritus, Rash Hematologic/lymphatic: DENIES: Bruising Neurologic: DENIES: Headache, Localized weakness Psychiatric: DENIES: Hallucinations, Agitation Past Family Social History Allergies: Coded Allergies: No Known Allergies (Verified , 06/10/15) Past Medical History HTN, DM Hypothyroidism Depression Hypercholesterolemia CAD Past Surgical History Umbilical hernia repair C- section Cholecystectomy Appendectomy Reported Medications Zosyn Family History Non contributory Social History Lives with Non smoker Physical Exam Vital Signs Vital Signs Date Time Temp Pulse Resp B/P Pulse Ox O2 Delivery O2 Flow Rate FiO2 02/15/17 16:00 98.9 75 20 187/97 100 02/15/17 12:00 98.5 75 20 160/100 94 02/15/17 10:16 96 Nasal Cannula 2.00 02/15/17 08:00 97.5 80 20 190/102 98 02/15/17 04:00 97.9 72 20 160/110 99 02/15/17 00:00 97.8 82 18 160/100 97 02/14/17 20:05 86 02/14/17 20:00 98.7 88 16 152/79 99 02/14/17 20:00 99 Nasal Cannula 2.00 Physical Exam GENERAL: This is a obese chronically ill patient, in no apparent distress. SKIN: No rashes, ecchymoses or lesions. Cool and dry. HEAD: Atraumatic. Normocephalic. No temporal or scalp tenderness. EYES: Pupils equal round and reactive. Extraocular motions intact. No scleral icterus. No injection or drainage. ENT: Nose without bleeding, purulent drainage or septal hematoma. Throat without erythema, tonsillar hypertrophy or exudate. Uvula midline. Airway patent. NECK: Trachea midline. No JVD or lymphadenopathy. Supple, nontender, no meningeal signs. CARDIOVASCULAR: Regular rate and rhythm without murmurs, gallops, or rubs. RESPIRATORY: Clear to auscultation. Breath sounds equal bilaterally. No wheezes , rales, or rhonchi. GASTROINTESTINAL: Abdomen soft, non-tender, nondistended. No hepato-splenomegaly , or palpable masses. No guarding.Right flank tenderness MUSCULOSKELETAL: Extremities without clubbing, cyanosis, or edema. No joint tenderness, effusion, or edema noted. No calf tenderness. Negative Homans sign bilaterally. NEUROLOGICAL: Awake and alert. Cranial nerves II through XII intact. Motor and sensory grossly within normal limits. Five out of 5 muscle strength in all muscle groups. Normal speech. Laboratory Laboratory Tests Test 02/15/17 05:58 White Blood Count 9.1 Red Blood Count 3.93 Hemoglobin 10.4 Hematocrit 32.2 Mean Corpuscular Volume 81.8 Mean Corpuscular Hemoglobin 26.4 Mean Corpuscular Hemoglobin 32.3 Concent Red Cell Distribution Width 14.3 Platelet Count 163 Mean Platelet Volume 9.7 Neutrophils (%) (Auto) 68.1 Lymphocytes (%) (Auto) 18.6 Monocytes (%) (Auto) 10.7 Eosinophils (%) (Auto) 2.4 Basophils (%) (Auto) 0.2 Neutrophils # (Auto) 6.2 Lymphocytes # (Auto) 1.7 Monocytes # (Auto) 1.0 Eosinophils # (Auto) 0.2 Basophils # (Auto) 0.0 CBC Comment DIFF FINAL Differential Comment Sodium Level 148 Potassium Level 3.7 Chloride Level 111 Carbon Dioxide Level 28.9 Anion Gap 8 Blood Urea Nitrogen 19 Creatinine 1.30 Estimat Glomerular Filtration 40 Rate Random Glucose 101 Calcium Level 8.7 Total Bilirubin 0.4 Aspartate Amino Transf 17 (AST/SGOT) Alanine Aminotransferase 15 (ALT/SGPT) Alkaline Phosphatase 83 Total Protein 6.3 Albumin 2.4 Date/Time Procedure Status Source Growth 02/12/17 12:45 Aerobic Blood Culture - Preliminary Resulted Blood Peripheral NO GROWTH IN 3 DAYS 02/12/17 12:45 Anaerobic Blood Culture - Preliminary Resulted Blood Peripheral NO GROWTH IN 3 DAYS 02/12/17 12:05 Urine Culture - Final Complete Urine Clean Catch Escherichia Coli Result Diagram: 02/15/1755702/15/17557 Assessment and Plan Problem List: (1) UTI (urinary tract infection) Status: Acute (2) Pyelonephritis due to Escherichia coli Status: Acute Plan: Follow Blood cultures- so far negative Stop Zosyn Start Cefazolin 1 g IV q8hrs. Re check UA and culture Problem Qualifiers (1) UTI (urinary tract infection): Qualified Code: N10 - Acute pyelonephritis Olga Jimenez MD Feb 15, 2017 19:28
[2017-02-15 20:00] VITALS: BP 203/100; PULSE 81; PULSE 82; RESP 18; TEMP 99.3; O2SAT 96
[2017-02-15 22:06] LABS: GLUCOSE,URINE NEG (NEG); KETONE, URINE NEG (NEG); NITRITE,URINE NEG (NEG); PH, URINE 5.5 (5.0-8.5)
[2017-02-15 22:08] LABS: BLOOD, URINE MOD (NEG); URINE COLOR YELLOW (YELLW/STRAW)
[2017-02-15 22:11] LABS: COMMENT (UR) CULT NOT INDICATED; CULTURE IF INDICATED CULT NOT INDICATED; SQUAMOUS EPITHELIAL CELL URINE 0-5 /hpf (0-5); WBC, URINE 0-2 /hpf (0-5)
[2017-02-16] VITALS: BP 143/66; PULSE 81; RESP 18; TEMP 98.9; O2SAT 99
[2017-02-16] MEDS: ACETAMINOPHEN/HYDROcodone 325 MG/5 MG TAB PO PRN (00:35)
[2017-02-16 04:00] VITALS: BP 152/79; PULSE 80; RESP 18; TEMP 97.7; O2SAT 96
[2017-02-16] MEDS: INSULIN ASPART SUPPLEMENTAL SCALE SQ SCH ×2 (05:08→11:00)
[2017-02-16 06:05] LABS: AUTOMATED NEUTROPHIL # 5.8 TH/MM3 (1.8-7.7); BASOPHIL # 0.1 TH/MM3 (0-0.2); BASOPHIL % 0.8 % (0.0-2.0); EOSINOPHIL # 0.3 TH/MM3 (0-0.4); EOSINOPHIL % 2.8 % (0.0-4.0); LYMPH % 24.2 % (9.0-44.0); LYMPHOCYTE # 2.3 TH/MM3 (1.0-4.8); MEAN CELL VOLUME 81.8 FL (80.0-100.0); MEAN CORPUSCULAR HEMOGLOBIN 26.5 PG (27.0-34.0); MEAN CORPUSCULAR HGB CONC 32.4 % (32.0-36.0); NEUT % 61.2 % (16.0-70.0); PLATELET COUNT 180 TH/MM3 (150-450); RED BLOOD COUNT 3.79 MIL/MM3 (4.00-5.30); RED CELL DISTRIBUTION WIDTH 13.8 % (11.6-17.2); WHITE BLOOD COUNT 9.6 TH/MM3 (4.0-11.0)
[2017-02-16 06:11] LABS: CHLORIDE 109 MEQ/L (98-107); HEMO FLAGS DIFF FINAL; POTASSIUM 3.7 MEQ/L (3.5-5.1); SODIUM (NA) 147 MEQ/L (136-145)
[2017-02-16 06:16] LABS: ANION GAP 9 MEQ/L (5-15); BICARBONATE 29.1 MEQ/L (21.0-32.0); BLOOD UREA NITROGEN 17 MG/DL (7-18)
[2017-02-16 06:19] LABS: ALT (GPT) 16 U/L (10-53); AST (GOT) 18 U/L (15-37); GLOMERULAR FILTRATION RATE 44 ML/MIN (>89)
[2017-02-16 06:20] LABS: TOTAL BILIRUBIN ADULT 0.3 MG/DL (0.2-1.0)
[2017-02-16 06:22] LABS: ALKALINE PHOSPHATASE 80 U/L (45-117)
[2017-02-16 08:00] VITALS: BP 168/75; PULSE 77; RESP 20; TEMP 98.2; O2SAT 99
[2017-02-16] MEDS: DOCUSATE SODIUM 50 MG/SENNA 8.6 MG TAB PO SCH (08:58)
[2017-02-16] MEDS: PANTOPRAZOLE SOD 40 MG DELAYED RELEASE TAB PO SCH (08:58)
[2017-02-16] MEDS: SODIUM CHLORIDE 0.9% FLUSH 10 ML FLUSH IV FLUSH SCH (08:59)
--- NOTE | 2017-02-16 09:17 | PQ ---
Physician Query Response Document PATIENT: GRACIE TONY : 1945 ADMIT DATE: 02/12/2017 2:03 PM DISCH DATE: RESPONDING PROVIDER #: EAhmed QUERY TEXT: Sepsis Query Based on your medical judgement, can you further clarify the folowiin. Sepsis (SIRS due to an infection) 2. Sepsis with Organ Dysfunction 3. A localized Infection only 4. Another condition - please specify 5. Unable to determine - please explain. Depending on your selection above, please indicate one of the below if applicable: - Sepsis was present on Admission - Sepsis developed after admission The patient's Clinical Indicators include: C/O FLANK PAIN, FEVER AND DYSURIA ON ADMISSION ADM DX ACUTE PYELONEPHRITIS VS ON ADMISSION T 99.7, HR 121, RR 20, BP 152/86 SAT 92 ROOM AIR URINE CULTURE E COLI / BLOOD CULUTE X 2 NO GWTH 2 DAYS LABS WBC 18.2 LACTIC ACID NORMAL 1.1 TX ER NS BOLUS X 3 1 L ZOSYN IV Query created by: Juliann Borjas on 02/14/2017 12:41 PM RESPONSE TEXT: Sepsis due to infection Electronically signed by: Martin José MD 02/16/2017 9:13 AM
[2017-02-16] MEDS ORDERED: OXYGENTANK NAS.CANULA (09:51)
[2017-02-16 12:00] VITALS: BP 164/77; PULSE 84; RESP 18; TEMP 98.4; O2SAT 96
[2017-02-16 16:00] VITALS: BP 160/74; PULSE 80; RESP 18; TEMP 97.9; O2SAT 97
[2017-02-16] MEDS ORDERED: CIPR-9 PO (16:09)
== END 2017-02-16 17:10 | disposition home or self-care (01) | DRG 872 ==
LOC: PHED 11:43 → PHEDA 14:03 → PH3A 18:05
PROVIDERS: ADMIT Family Medicine; ATTEND Family Medicine
DX: A41.51 Sepsis due to Escherichia coli [E. coli] (principal); E11.9 Type 2 diabetes mellitus without complications; N10 Acute pyelonephritis; I10 Essential (primary) hypertension; B96.20 Unspecified Escherichia coli [E. coli] as the cause of diseases classified elsewhere; M19.90 Unspecified osteoarthritis, unspecified site; F41.9 Anxiety disorder, unspecified; F32.9 Major depressive disorder, single episode, unspecified; E78.5 Hyperlipidemia, unspecified; E03.9 Hypothyroidism, unspecified; E78.00 Pure hypercholesterolemia, unspecified; I25.10 Atherosclerotic heart disease of native coronary artery without angina pectoris
CPT/HCPCS: 71010; 74176; 80048; 80053; 81001; 82948; 83605; 85025; 87040; 87077; 87086; 87186; 94620; 96361; 96365; J0690; J1815; J2405; J2543; J7030